=== PATIENT | male | born 1960 | race African-American/Black ===

== ENCOUNTER 2017-02-04 12:18 | Emergency (ER) | payer OTHER ==
[~2017-02-04] VITALS: Ht 180.3 cm; Wt 98.5 kg
[2017-02-04 12:40] VITALS: Ht 180.3 cm; Wt 98.5 kg
[2017-02-04] MEDS ORDERED: METO-319 PO (14:00)
[2017-02-04] MEDS ORDERED: HYDR-3672 PO (14:00)
[2017-02-04] MEDS ORDERED: LISI20TA11 PO (14:00)
[2017-02-04] MEDS ORDERED: FURO-109 PO (14:00)
--- NOTE | 2017-02-04 14:04 | ERD ---
ER Documentation Chief Complaint Chief Complaint Need refill on his antihypertensive meds HPI 56-year-old male with history of hypertension presents with a request for medication refill. Patient has recently switched insurances/doctors and cannot get in for the next month. Patient is out of lisinopril and is on his last few pills for metoprolol, furosemide, hydralazine. Denies chest pain, palpitations , shortness of breath, syncope, or headache. Patient has no other complaints. Describes no adverse effects with the medications. Nursing has been reviewed and are consistent with history given. ROS All systems reviewed and are negative except as per history of present illness. Medications Home Meds Active Scripts Hydralazine Hcl* (Hydralazine Hcl*) 50 Mg Tab, 50 MG PO BID, #90 TAB Prov:YASEMIN HUBBARD PA-C 02/04/17 Furosemide* (Lasix*) 40 Mg Tablet, 40 MG PO DAILY, #20 TAB Prov:YASEMIN HUBBARD PA-C 02/04/17 Metoprolol Succinate* (Toprol XL*) 50 Mg Tab.er.24h, 100 MG PO DAILY, #20 TAB Prov:YASEMIN HUBBARD PA-C 02/04/17 Lisinopril* (Lisinopril*) 20 Mg Tablet, 20 MG PO BID, #30 TAB Prov:YASEMIN HUBBARD PA-C 02/04/17 PMhx/Soc Medical and Surgical Hx: pt denies Medical Hx, pt denies Surgical Hx Hx Alcohol Use: No Hx Substance Use: No Hx Tobacco Use: No Smoking Status: Never smoker Physical Exam Vitals Vital Signs Date Time Temp Pulse Resp B/P Pulse Ox O2 Delivery O2 Flow Rate FiO2 02/04/17 12:40 97.3 76 18 126/88 98 Physical Exam Const: Well-appearing 56-year-old male sitting in the chair in no acute distress with initial presentation. Head: Atraumatic Eyes: Normal Conjunctiva ENT: Normal External Ears, Nose and Mouth. Neck: Full range of motion..~ No meningismus. Resp: Clear to auscultation bilaterally Cardio: Regular rate and rhythm, no murmurs Neur: Awake and alert Psych: Normal Mood and Affect Procedures/MDM Well-appearing 56-year-old male in no acute distress presenting with a request for medication refill. No adverse reactions to medications. No suspicion for drug-seeking behavior. Patient is requesting the following medications: Lisinopril 20 mg twice daily Metoprolol 100 mg daily Furosemide 40 mg daily Hydralazine 50 mg twice daily Patient's most likely diagnosis is medication refill for hypertension. No suspicion for ACS, or other acute cardiopulmonary pathology. I have spoke with the patient regarding their condition and future management including the necessity to be followed by PCP. They have verbally responded that they understand their status and treatment plan. The patients vitals are stable, and their current condition is appropriate for discharge. The patient will be given discharge instructions with return precautions. Departure Diagnosis: Primary Impression: Encounter for medication refill Condition: Stable Patient Instructions: Metoprolol Tartrate Oral tablet Additional Instructions: Follow up with your PCP within the next 2 weeks for a more thorough evaluation and a possible referral to a specialist. Return the the emergency department immediately if symptoms worsen or change. If you have any questions regarding medications, ask your pharmacist or us before you leave. If any adverse reactions occur while taking your medications, discontinue the treatment and return to the emergency department immediately. Take your medications as directed. YASEMIN HUBBARD PA-C Feb 04, 2017 14:04
== END 2017-02-04 14:07 | disposition home or self-care (01) ==
LOC: FTE 12:18
DX: Z76.0 Encounter for issue of repeat prescription (principal); I10 Essential (primary) hypertension
CPT/HCPCS: 99281